=== PATIENT | male | born 1970 | race Asian ===

== ENCOUNTER 2020-05-31 20:30 | Emergency (ER) | payer OTHER ==
[~2020-05-31] VITALS: Ht 165.1 cm; Wt 70.3 kg
[2020-05-31] MEDS ORDERED: OMEP20CA15 PO (20:47)
[2020-05-31] MEDS ORDERED: SIMV-46 PO (20:47)
--- NOTE | 2020-05-31 21:00 | NUR ---
MD Ang in room to assess patient.
--- NOTE | 2020-05-31 21:07 | NUR ---
ophthalmic medical technologist in room to draw blood from patient.
[2020-05-31] MEDS ORDERED: LORAZEPAM 0.5 MG TABLET PO ONE (21:15)
[2020-05-31] MEDS ORDERED: IV NORMAL SALINE 1000 ML BAG IV ONE (21:15)
[2020-05-31 21:19] LABS: BASOPHILS % (AUTO) 0.2 % (0.0-2.0); EOSINOPHILS % (AUTO) 0.4 % (0.0-7.0); HEMATOCRIT 49.5 % (36.7-47.1); HEMOGLOBIN 16.7 g/dL (12.5-16.3); LYMPHOCYTES # (AUTO) 0.6 K/uL (20.0-40.0); LYMPHOCYTES % (AUTO) 7.4 % (20.5-51.5); MEAN CORPUSCULAR HEMOGLOBIN 29.8 uug (23.8-33.4); MEAN CORPUSCULAR HGB CONC 34 g/dL (32.5-36.3); MEAN CORPUSCULAR VOLUME 88.1 fL (73.0-96.2); MONOCYTES # (AUTO) 0.7 K/uL (2.0-10.0); MONOCYTES % (AUTO) 8.6 % (0.0-11.0); NEUTROPHILS # (AUTO) 6.5 K/uL (1.8-8.9); NEUTROPHILS % (AUTO) 83.4 % (38.5-71.5); PLATELET COUNT (AUTO) 227 K/uL (152-348); RED BLOOD CELL COUNT(AUTO) 5.62 MIL/uL (4.06-5.63); WHITE BLOOD COUNT (AUTO) 7.8 K/uL (3.6-10.2)
[2020-05-31] MEDS ORDERED: LORAZEPAM 0.5 MG TABLET ONE (21:27)
[2020-05-31 21:35] LABS: BILIRUBIN,DIRECT 0.2 mg/dL (0.0-0.2); BILIRUBIN,TOTAL 0.8 mg/dL (0.2-1.0); CREATININE 0.8 mg/dL (0.6-1.3); POTASSIUM 3.6 mmol/L (3.5-5.1); TOTAL PROTEIN, SERUM 7.6 g/dL (6.4-8.2)
--- NOTE | 2020-05-31 22:00 | NUR ---
pt resting in bed, burping, no acute distress is noted at this time.
[2020-05-31] MEDS ORDERED: MAG HYDROX/AL HYDROX/SIMETH 30 ML LIQUID UDC PO ONE (22:30)
[2020-05-31] MEDS ORDERED: FAMOTIDINE 20 MG TABLET PO ONE (22:30)
--- NOTE | 2020-05-31 22:40 | NUR ---
MD MORALES in room to discuss results of tests with patient.
[2020-05-31] MEDS ORDERED: FAMOTIDINE 20 MG TABLET ONE (22:43)
[2020-05-31] MEDS ORDERED: MAG HYDROX/AL HYDROX/SIMETH 30 ML LIQUID UDC ONE (22:43)
[2020-05-31] MEDS ORDERED: LORA-259 PO (22:50)
[2020-05-31 23:10] VITALS: BP 133/89
--- NOTE | 2020-05-31 23:10 | NUR ---
Patient discharged to home in stable condition. Written and verbal after care instructions given. Patient verbalizes understanding of instructions. Stressed follow up or return to ER for worsening s/s. Patient ambulates with steady gait, received Rx, received copy of imaging/labs/ECG, left with all personal belongings.
== END 2020-05-31 23:10 | disposition home or self-care (01) ==
LOC: ER 20:33
DX: F41.9 Anxiety disorder, unspecified (principal); R00.0 Tachycardia, unspecified; R10.13 Epigastric pain; Z86.16 Personal history of COVID-19; R00.2 Palpitations; E78.5 Hyperlipidemia, unspecified; K21.9 Gastro-esophageal reflux disease without esophagitis; Z79.899 Other long term (current) drug therapy
CPT/HCPCS: 36415; 70030-TC; 71045; 84443; 85025; 93005; A4663; J7030